=== PATIENT | male | born 1990 | race Caucasian/White ===

== ENCOUNTER → 2021-05-29 18:02 | Outpatient (BNVA) | payer OTHER, MEDICAID, SELFPAY | PROVIDERS: Family Provider Nurse Practitioner; PCP Nurse Practitioner; Visit Provider Nurse Practitioner | DX: R06.02 Shortness of breath (principal) | CPT/HCPCS: 71046; 80053; 80061; 85025 ==

== ENCOUNTER → 2022-12-20 14:09 | Outpatient (BNVA) | payer BC, MEDICAID, SELFPAY | PROVIDERS: Family Provider Nurse Practitioner; PCP Nurse Practitioner; Visit Provider Nurse Practitioner Family | DX: R05.9 Cough, unspecified (principal); R50.9 Fever, unspecified; J06.9 Acute upper respiratory infection, unspecified | CPT/HCPCS: 87426 ==